=== PATIENT | male | born 1960 | race Caucasian/White ===

== ENCOUNTER 2019-04-05 09:01 | Outpatient (CLI) | payer OTHER, SELFPAY ==
--- NOTE | 2019-04-05 09:30 | USCV_ITS ---
DarwinMike Age: 59 Gender: M : 1960 Exam Date: 04/05/2019 09:20 Ordering Phys: Nereyda Noriega DO Technologist: Aleshia Silver Exam Location: [facility] [place] Indication: swelling HISTORY: Patient has swelling. PROCEDURES: Venous duplex imaging was performed in only the left lower extremity. The following venous structures were evaluated: common femoral vein, profunda vein, proximal portion of the greater saphenous vein, superficial femoral vein, and the popliteal vein. In addition, the posterior tibial and peroneal trunk were evaluated. Serial compression, augmentation maneuvers, and spectral Doppler flow evaluation were performed. Venous duplex imaging was performed in only the right lower extremity. FINDINGS: Normal 2-D Doppler and augmentation and compressibility throughout the lower extremity venous structures. Additional imaging through the proximal calf veins also reveals no thrombus. Limited evaluation of the greater saphenous vein is patent with no thrombus. CONCLUSIONS No DVT left lower extremity. Dr. Alexia Miles DO (Electronically Signed) Final Date: 05 April 2019 11:23 S
== END 2019-04-05 09:02 | disposition home or self-care (01) ==
LOC: RAD 09:06
PROVIDERS: Family Provider Internal Medicine; PCP Family Medicine; Visit Provider Family Medicine
DX: M79.89 Other specified soft tissue disorders (principal)
CPT/HCPCS: 93971

== ENCOUNTER → 2019-09-01 08:27 | Outpatient (BNVA) | payer SELFPAY | PROVIDERS: Family Provider Internal Medicine; PCP Family Medicine; Visit Provider Family Medicine | DX: I10 Essential (primary) hypertension (principal) | CPT/HCPCS: 80053; 80061; 82044; 85025 ==

== ENCOUNTER → 2020-03-01 08:41 | Outpatient (BNVA) | payer SELFPAY | PROVIDERS: Family Provider Internal Medicine; PCP Family Medicine; Visit Provider Family Medicine | DX: I10 Essential (primary) hypertension (principal); F17.229 Nicotine dependence, chewing tobacco, with unspecified nicotine-induced disorders | CPT/HCPCS: 80053 ==

== ENCOUNTER → 2020-08-27 08:08 | Outpatient (BNVA) | payer SELFPAY | PROVIDERS: Family Provider Internal Medicine; PCP Family Medicine; Visit Provider Family Medicine | DX: I10 Essential (primary) hypertension (principal); Z12.5 Encounter for screening for malignant neoplasm of prostate; F17.229 Nicotine dependence, chewing tobacco, with unspecified nicotine-induced disorders; F10.10 Alcohol abuse, uncomplicated; Z79.899 Other long term (current) drug therapy | CPT/HCPCS: 80053; 80061; 85025; G0103 ==

== ENCOUNTER → 2021-02-25 10:13 | Outpatient (BNVA) | payer SELFPAY | PROVIDERS: Family Provider Internal Medicine; PCP Family Medicine; Visit Provider Family Medicine | DX: I10 Essential (primary) hypertension (principal) | CPT/HCPCS: 80053 ==

== ENCOUNTER 2021-08-05 13:56 | Emergency (ER) | payer MEDICAID, SELFPAY ==
[2021-08-05] VITALS (10 sets, daily range): BP systolic 128–180; BP diastolic 100–122; PULSE 83–103; RESP 14–18; TEMP 36.6; O2SAT 92–98; BMI 24.1
--- NOTE | 2021-08-05 14:22 | CTR_ITS ---
PROCEDURE INFORMATION: Exam: CT Abdomen And Pelvis With Contrast Exam date and time: 08/05/2021 3:46 PM Age: 61 years old Clinical indication: Abdominal pain; Localized; Right lower quadrant (rlq); Prior surgery; Surgery type: Hernia; Additional info: Abd pain TECHNIQUE: Imaging protocol: Computed tomography of the abdomen and pelvis with contrast. Radiation optimization: All CT scans at this facility use at least one of these dose optimization techniques: automated exposure control; mA and/or kV adjustment per patient size (includes targeted exams where dose is matched to clinical indication); or iterative reconstruction. Contrast material: OMNI 300; Contrast volume: 95 ml; Contrast route: INTRAVENOUS (IV); COMPARISON: No relevant prior studies available. RADIATION DOSE METRICS: Total DLP (mGy-cm): 838.26 FINDINGS: Lungs: Calcified granuloma posterior right lung base. Liver: Liver is normal in size with steatosis. No obvious cirrhosis or suspicious mass. Gallbladder and bile ducts: Normal. No calcified stones. No ductal dilation. Pancreas: Normal. No ductal dilation. Spleen: Normal spleen size with calcified splenic granulomas. Adrenal glands: Normal. No mass. Kidneys and ureters: There is minimal right hydronephrosis, hydroureter and increased urothelial enhancement and minimal regional stranding. There is also slightly delayed right nephrogram. There is a tiny calculus in the posterior bladder lumen measuring about 1 mm. These findings suggest recent passage of right-sided calculus or calculi. No calculi are presently noted in the kidneys. No perinephric collection. Stomach and bowel: There is a large left medial diaphragmatic hernia containing the entire stomach and some fat. No evidence of other visceral herniation. No obvious wall thickening or abnormal dilatation in the partially visualized herniated stomach. Appendix: No evidence of appendicitis. Intraperitoneal space: Unremarkable. No free air. No significant fluid collection. Vasculature: No abdominal aortic aneurysm. Lymph nodes: No enlarged lymph nodes. Urinary bladder: See Kidneys and ureters finding. Reproductive: Unremarkable as visualized. Bones/joints: No acute fracture. Soft tissues: Tiny fat-containing right inguinal hernia. CT/CT abdomen pelvis w con* [id number] IMPRESSION: 1. Minimal right hydronephrosis/hydroureter and minimal regional stranding and delayed right nephrogram most likely related to recently passed right-sided calculus or calculi. At least 1 punctate calculus is noted in the dependent bladder lumen. 2. Large diaphragmatic/hiatal hernia as described above. No acute bowel findings otherwise. 3. Hepatic and other nonacute findings as above.
--- NOTE | 2021-08-05 14:30 | ED_ITS ---
HPI - General Adult General: Chief complaint: Abdominal Pain Stated complaint: ABD pain Time Seen by Provider: 08/05/21 14:22 History of Present Illness: Patient is a 61-year-old male with a history of prior left inguinal hernia repair repair presenting to the emergency room with sudden onset of right lower quadrant dull pain x4 hours. Patient tells me pain started quickly and immediately. Patient has had cramping colicky pain in that area. Patient reports multiple episode of emesis, denies any fever or chills diarrhea melena medic easier. Patient has no complaints at this time. Onset:4 hrs ago Duration:4 hrs Location:home Severity:moderate Associated symptoms: Reports nausea and vomiting; Deny chest pain, dyspnea, rash or palpitations Review of Systems Const: Denies: fever(s) or chills Eyes: Denies: change in vision ENMT: Denies: mouth pain Card: Denies: chest pain or palpitations Resp: Denies: dyspnea or non-productive cough GI: Reports: abdominal pain (+RLQ abd pain), nausea and vomiting; Denies: diarrhea : Denies: dysuria Musc: Denies: extremity pain Skin/Breast: Denies: rash or new lesions Neuro: Denies: weakness in extremities Psych: Reports: other (Normal mood) Jose Manuel/Lymph: Denies: easy bruising PFSH ED PFSH: Medical History (Updated 08/05/21 @ 18:06 by Ko Goldman MD) Benign essential hypertension Swelling of left lower extremity Surgical History (Updated 08/05/21 @ 14:31 by Ko Goldman MD) H/O hernia repair H/O inguinal hernia repair H/O vasectomy Family History Other CAD (coronary artery disease) Social History Smoking and tobacco status: current every day smoker smokeless tobacco Smokeless tobacco user: chewing tobacco Smokeless tobacco details: all day long Alcohol intake: current Alcohol intake frequency: 3 or more drinks per day Alcohol type: hard liquor Physical Exam Const: COMMON NORMALS: alert HENMT: COMMON NORMALS: atraumatic HEAD & SCALP: atraumatic MOUTH: moist mucous membranes not abnormal Eye: COMMON NORMALS: EOMs intact bilaterally and conjunctivae normal CONJUNCTIVA: Yes conjunctivae normal Neck/C-Spine: COMMON NORMALS: full ROM and supple Resp: COMMON NORMALS: normal respiratory effort and clear to auscultation bilaterally AUSCULTATION: clear to auscultation bilaterally Cardio: COMMON NORMALS: regular rate RATE: regular rate GI: COMMON NORMALS: Soft to palpation PALPATION: Yes Soft to palpation OTHER: +Moderate RLQ focal TTP. NO guarding rebound, guarding, rigidity. No CVA tenderness to percussion. Neg Joseph/Neg McBurney's point tenderness, no suprabupic tenderness to palpation. Extremity: COMMON NORMALS: full ROM Neuro: SENSORIUM/ORIENTATION: Yes alert MOTOR EXAM: No Abnormal motor strength present and Other motor observations present (no focal motor deficits) Psych: COMMON NORMALS: speech normal SPEECH: Yes normal speech MOOD & AFFECT: Yes euthymic mood Course Vital Signs: Vital signs: Vital Signs Temperature 97.8 F 08/05/21 14:17 Pulse Rate 86 08/05/21 18:00 Respiratory Rate 16 08/05/21 15:16 Blood Pressure 151/102 08/05/21 18:00 Pulse Oximetry 98 08/05/21 18:00 MDM - General Adult Medical Decision Making 61-year-old male with a history of hypertension, prior left-sided inguinal hernia repair presenting to the emergency with complaints of cute onset right lower quadrant pain x4 hours. On exam, patient is in moderate distress with moderate amount of tenderness palpation. No guarding no rebound tenderness. Patient received morphine and Zofran with improvement in nausea and pain. White count of 10.9. Creatinine of 1.0. UA showed blood. CT abdomen pelvis showed passed stone. Patient reports feeling significantly improved after pain medicine and IVF. Patient's not in distress currently. Suspect the past kidney stone. Initially lactic acid was 3.7 but it improved to 2.2 on repeat. Incidental findings of large hiatal hernia discussed extensively with patient. Patient received a copy of the CT report with the documented findings. Patient is instructed to follow up urgently with specialists. Rx tylenol PRN pain Disposition: Discharge. Patient counseled regarding diagnostic impression, treatment plan. Patient given ED strict return precautions to return for continuation, worsening, or development of new symptoms. Instructed to f/u w/ PCP regarding symptoms today. Patient verbalized understanding. Lab Data : 08/05/21 14:35 08/05/21 14:35 Radiology Impressions Abdomen/Pelvis CT 08/05/21 14:22 IMPRESSION: 1. Minimal right hydronephrosis/hydroureter and minimal regional stranding and delayed right nephrogram most likely related to recently passed right-sided calculus or calculi. At least 1 punctate calculus is noted in the dependent bladder lumen. 2. Large diaphragmatic/hiatal hernia as described above. No acute bowel findings otherwise. 3. Hepatic and other nonacute findings as above. Laboratory Results WBC 10.9 10^3/uL (4.0-10.0) H 08/05/21 14:35 RBC 4.38 10^6/uL (4.1-5.3) 08/05/21 14:35 Hgb 15.4 g/dL (11.7-16.6) 08/05/21 14:35 Hct 43.1 % (42.0-52.0) 08/05/21 14:35 MCV 98.4 fl (80-94) H 08/05/21 14:35 MCH 35.2 pg (28.0-34.0) H 08/05/21 14:35 MCHC 35.7 g/dL (30.0-36.0) 08/05/21 14:35 RDW 13.2 % (12.1-15.1) 08/05/21 14:35 Plt Count 197 10^3/cmm (130-400) 08/05/21 14:35 MPV 11.4 fL (7.4-10.4) H 08/05/21 14:35 Neut % (Auto) 88.2 % 08/05/21 14:35 Lymph % (Auto) 6.6 % 08/05/21 14:35 [place] % (Auto) 3.7 % 08/05/21 14:35 Eos % (Auto) 0.6 % 08/05/21 14:35 Baso % (Auto) 0.6 % 08/05/21 14:35 Neut # (Auto) 9.64 10^3/uL (1.8-7.7) H 08/05/21 14:35 Lymph # (Auto) 0.7 10^3/uL (0.8-4.8) L 08/05/21 14:35 [place] # (Auto) 0.4 10^3/uL (0.2-0.9) 08/05/21 14:35 Eos # (Auto) 0.1 10^3/uL (0.0-0.8) 08/05/21 14:35 Baso # (Auto) 0.1 10^3/uL (0.0-0.1) 08/05/21 14:35 Nucleated RBC % (auto) 0 % 08/05/21 14:35 Nucleated RBCs # 0.0 /100WBC 08/05/21 14:35 Sodium 141 mmol/L (136-145) 08/05/21 14:35 Potassium 4.1 mmol/L (3.5-5.1) 08/05/21 14:35 Chloride 103 mmol/L (98-107) 08/05/21 14:35 Carbon Dioxide 19 mmol/L (22-29) L 08/05/21 14:35 Anion Gap 23.1 (5-19) H 08/05/21 14:35 BUN 10 mg/dL (8-23) 08/05/21 14:35 Creatinine 1.0 mg/dL (0.7-1.2) 08/05/21 14:35 GFR Calculation 76.2 mL/min (90-130) L 08/05/21 14:35 Glucose 155 mg/dL (65-115) H 08/05/21 14:35 Calculated Osmolality 294 mOsm/kg (285-295) 08/05/21 14:35 Lactate 2.2 mmol/L (0.5-2.2) 08/05/21 17:50 Calcium 9.1 mg/dL (8.5-10.5) 08/05/21 14:35 Total Bilirubin 0.9 mg/dL (0.15-1.2) 08/05/21 14:35 AST 125 U/L (0-40) H 08/05/21 14:35 ALT 77 U/L (0-41) H 08/05/21 14:35 Alkaline Phosphatase 71 IU/L (40-130) 08/05/21 14:35 Total Protein 8.6 g/dL (6.6-8.7) 08/05/21 14:35 Albumin 4.8 g/dL (3.5-5.2) 08/05/21 14:35 Globulin 3.8 g/dL (1.3-4.6) 08/05/21 14:35 Lipase 35 U/L (13-60) 08/05/21 14:35 Urine Color Dark yellow (Yellow) 08/05/21 14:45 Urine Appearance Clear (CLEAR) 08/05/21 14:45 Urine pH 5 (5-7) 08/05/21 14:45 Ur Specific [place] 1.030 (1.005-1.030) 08/05/21 14:45 Urine Protein Trace (Negative) 08/05/21 14:45 Urine Glucose (UA) Norm (Normal) 08/05/21 14:45 Urine Ketones 1+ (Negative) H 08/05/21 14:45 Urine Blood 3+ (Negative) H 08/05/21 14:45 Urine Nitrate Negative (Negative) 08/05/21 14:45 Urine Bilirubin 1+ (Negative) H 08/05/21 14:45 Urine Urobilinogen Norm mg/dL (Negative) 08/05/21 14:45 Ur Leukocyte Esterase Negative (Negative) 08/05/21 14:45 Urine RBC 10-15 /hpf (0-2) H 08/05/21 14:45 Urine WBC 0-4 /hpf (0-5) H 08/05/21 14:45 Ur Squamous Epith Cells 0-4 /hpf (0-5) H 08/05/21 14:45 Amorphous Sediment Trace /hpf 08/05/21 14:45 Urine Bacteria Trace /hpf (NONE) 08/05/21 14:45 Hyaline Casts 0-4 /lpf H 08/05/21 14:45 Fine Granular Casts 0-4 /lpf H 08/05/21 14:45 Urine Mucus 2+ /hpf 08/05/21 14:45 Imaging Data Other Imaging: Radiologist's impression: [address] [address] [address] Scan Report Signed Patient: Mike Granados Unit #: [id number] : 1960 Age/Sex: 61 / M ADM Date: 08/05/21 Loc: ER Room/Bed: Attending Dr: Ordering Provider/Ordering MD: Ko Goldman MD Date of Service: 08/05/21 Procedure(s): CT abdomen pelvis w con* [id number] Accession Number(s): [id number] Report Number: [id number] PROCEDURE INFORMATION: Exam: CT Abdomen And Pelvis With Contrast Exam date and time: 08/05/2021 3:46 PM Age: 61 years old Clinical indication: Abdominal pain; Localized; Right lower quadrant (rlq); Prior surgery; Surgery type: Hernia; Additional info: Abd pain TECHNIQUE: Imaging protocol: Computed tomography of the abdomen and pelvis with contrast. Radiation optimization: All CT scans at this facility use at least one of these dose optimization techniques: automated exposure control; mA and/or kV adjustment per patient size (includes targeted exams where dose is matched to clinical indication); or iterative reconstruction. Contrast material: OMNI 300; Contrast volume: 95 ml; Contrast route: INTRAVENOUS (IV);? COMPARISON: No relevant prior studies available. RADIATION DOSE METRICS: Total DLP (mGy-cm): 838.26 FINDINGS: Lungs: Calcified granuloma posterior right lung base. Liver: Liver is normal in size with steatosis. No obvious cirrhosis or suspicious mass. Gallbladder and bile ducts: Normal. No calcified stones. No ductal dilation. Pancreas: Normal. No ductal dilation. Spleen: Normal spleen size with calcified splenic granulomas. Adrenal glands: Normal. No mass. Kidneys and ureters: There is minimal right hydronephrosis, hydroureter and increased urothelial enhancement and minimal regional stranding. There is also slightly delayed right nephrogram. There is a tiny calculus in the posterior bladder lumen measuring about 1 mm. These findings suggest recent passage of right-sided calculus or calculi. No calculi are presently noted in the kidneys. No perinephric collection. Stomach and bowel: There is a large left medial diaphragmatic hernia containing the entire stomach and some fat. No evidence of other visceral herniation. No obvious wall thickening or abnormal dilatation in the partially visualized herniated stomach. Appendix: No evidence of appendicitis. Intraperitoneal space: Unremarkable. No free air. No significant fluid collection. Vasculature: No abdominal aortic aneurysm.? Lymph nodes: No enlarged lymph nodes. Urinary bladder: See Kidneys and ureters finding. Reproductive: Unremarkable as visualized. Bones/joints: No acute fracture.? Soft tissues: Tiny fat-containing right inguinal hernia. CT/CT abdomen pelvis w con* [id number] IMPRESSION: 1. Minimal right hydronephrosis/hydroureter and minimal regional stranding and delayed right nephrogram most likely related to recently passed right-sided calculus or calculi. At least 1 punctate calculus is noted in the dependent bladder lumen. 2. Large diaphragmatic/hiatal hernia as described above. No acute bowel findings otherwise. 3. Hepatic and other nonacute findings as above. ? Dictated By: Real Ricardo MD Signed By: Real Ricardo MD Signed Date/Time: 08/05/21 1612 DD/ 1546 Discharge Plan Discharge Patient Disposition: Home Clinical Impression: Renal colic, Abdominal pain Condition: Stable Prescriptions: New acetaminophen 500 mg tablet 500 mg PO Q6H PRN (Reason: pain) 5 Days Qty: 20 0RF No Action lisinopril 10 mg tablet 10 mg PO QAM 0RF Discharge Orders: Discharge ED (Routine); Ordered 08/05/21 Ordered By: Ko Goldman Referrals: Nereyda Noriega DO [Primary Care Provider] - Discharge Diet: Advance as tolerated Discharge Activity: Increase activity as tolerated Patient Instructions: Abdominal Pain (ED) Activity Restrictions/Additional Instructions: Please come back if you have any worsening abdominal pain, fever or chills, nausea or vomiting, diarrhea, blood in the stool, inability hold down liquid or solids, or any new concerning complaints. Here's a copy of your CT report: [facility] [address] [address] Scan Report Signed Patient: Mike Granados Unit #: [id number] : 1960 Age/Sex: 61 / M ADM Date: 08/05/21 Loc: ER Room/Bed: Attending Dr: Ordering Provider/Ordering MD: Ko Goldman MD Date of Service: 08/05/21 Procedure(s): CT abdomen pelvis w con* [id number] Accession Number(s): [id number] Report Number: [id number] PROCEDURE INFORMATION: Exam: CT Abdomen And Pelvis With Contrast Exam date and time: 08/05/2021 3:46 PM Age: 61 years old Clinical indication: Abdominal pain; Localized; Right lower quadrant (rlq); Prior surgery; Surgery type: Hernia; Additional info: Abd pain TECHNIQUE: Imaging protocol: Computed tomography of the abdomen and pelvis with contrast. Radiation optimization: All CT scans at this facility use at least one of these dose optimization techniques: automated exposure control; mA and/or kV adjustment per patient size (includes targeted exams where dose is matched to clinical indication); or iterative reconstruction. Contrast material: OMNI 300; Contrast volume: 95 ml; Contrast route: INTRAVENOUS (IV);? COMPARISON: No relevant prior studies available. RADIATION DOSE METRICS: Total DLP (mGy-cm): 838.26 FINDINGS: Lungs: Calcified granuloma posterior right lung base. Liver: Liver is normal in size with steatosis. No obvious cirrhosis or suspicious mass. Gallbladder and bile ducts: Normal. No calcified stones. No ductal dilation. Pancreas: Normal. No ductal dilation. Spleen: Normal spleen size with calcified splenic granulomas. Adrenal glands: Normal. No mass. Kidneys and ureters: There is minimal right hydronephrosis, hydroureter and increased urothelial enhancement and minimal regional stranding. There is also slightly delayed right nephrogram. There is a tiny calculus in the posterior bladder lumen measuring about 1 mm. These findings suggest recent passage of right-sided calculus or calculi. No calculi are presently noted in the kidneys. No perinephric collection. Stomach and bowel: There is a large left medial diaphragmatic hernia containing the entire stomach and some fat. No evidence of other visceral herniation. No obvious wall thickening or abnormal dilatation in the partially visualized herniated stomach. Appendix: No evidence of appendicitis. Intraperitoneal space: Unremarkable. No free air. No significant fluid collection. Vasculature: No abdominal aortic aneurysm.? Lymph nodes: No enlarged lymph nodes. Urinary bladder: See Kidneys and ureters finding. Reproductive: Unremarkable as visualized. Bones/joints: No acute fracture.? Soft tissues: Tiny fat-containing right inguinal hernia. CT/CT abdomen pelvis w con* [id number] IMPRESSION: 1. Minimal right hydronephrosis/hydroureter and minimal regional stranding and delayed right nephrogram most likely related to recently passed right-sided calculus or calculi. At least 1 punctate calculus is noted in the dependent bladder lumen. 2. Large diaphragmatic/hiatal hernia as described above. No acute bowel findings otherwise. 3. Hepatic and other nonacute findings as above. ? Dictated By: Real Ricardo MD Signed By: Real Ricardo MD Signed Date/Time: 08/05/21 1612 DD/ 1546 Coding Level of Care Code ED Composition Stone Applicator for Chg Fwd Exam Comprehensive
[2021-08-05 14:45] LABS: Basophils # 0.1 10^3/uL (0.0-0.1); Basophils % 0.6 %; Eosinophils # 0.1 10^3/uL (0.0-0.8); Eosinophils % 0.6 %; Hematocrit 43.1 % (42.0-52.0); Hemoglobin 15.4 g/dL (11.7-16.6); Lymphocytes # 0.7 10^3/uL (0.8-4.8); Lymphocytes % 6.6 %; Mean Corpuscular HGB Conc 35.7 g/dL (30.0-36.0); Mean Corpuscular Hemoglobin 35.2 pg (28.0-34.0); Mean Corpuscular Volume 98.4 fl (80-94); Mean Platelet Volume 11.4 fL (7.4-10.4); Monocytes # 0.4 10^3/uL (0.2-0.9); Monocytes % 3.7 %; Neutrophils # 9.64 10^3/uL (1.8-7.7); Neutrophils % 88.2 %; Nucleated Red Blood Cells % 0 %; Platelet Count 197 10^3/cmm (130-400); Red Blood Count 4.38 10^6/uL (4.1-5.3); Red Cell Distribution Width 13.2 % (12.1-15.1); White Blood Count 10.9 10^3/uL (4.0-10.0)
[2021-08-05] MEDS: sodium chloride 0.9% 1,000 ML 999 ML IV ×3 (14:48→17:54)
[2021-08-05] MEDS: morphine 4 mg/mL SDV 1 mL IVP (14:48)
[2021-08-05] MEDS: ondansetron 2 mg/ML SDV 2 mL 4 MG IVP (14:48)
[2021-08-05 15:03] LABS: Lactate (Lactic Acid level) 3.7 mmol/L (0.5-2.2)
[2021-08-05 15:04] LABS: Alanine Aminotransferase 77 U/L (0-41); Albumin Level 4.8 g/dL (3.5-5.2); Alkaline Phosphatase 71 IU/L (40-130); Anion Gap 23.1 (5-19); Aspartate Amino Transferase 125 U/L (0-40); Blood Urea Nitrogen 10 mg/dL (8-23); Calcium 9.1 mg/dL (8.5-10.5); Carbon Dioxide 19 mmol/L (22-29); Chloride 103 mmol/L (98-107); Globulin 3.8 g/dL (1.3-4.6); Glomerular Filtration Rate 76.2 mL/min (90-130); Glucose 155 mg/dL (65-115); Lipase 35 U/L (13-60); Osmolality Calculated 294 mOsm/kg (285-295); Potassium 4.1 mmol/L (3.5-5.1); Sodium 141 mmol/L (136-145); Total Bilirubin 0.9 mg/dL (0.15-1.2); Total Protein 8.6 g/dL (6.6-8.7)
[2021-08-05] MEDS: HYDROmorphone 1 mg/mL INJ 1 mL 0.5 MG IVP (15:16)
[2021-08-05 15:28] LABS: Glucose Urine UA Norm (Normal); Protein Urine Trace (Negative); Urine Appearance Clear (CLEAR); Urine Color Dark Yellow (Yellow); pH Urine 5 (5-7)
[2021-08-05 15:29] LABS: Add Urine Microscopic? YES; Bacteria Urine TRACE /hpf; Bilirubin Urine 1+ (Negative); Blood Urine 3+ (Negative); Ketones Urine 1+ (Negative); Leukocyte Esterase Urine Negative (Negative); Mucus Urine 2+ /hpf; Nitrate Urine Negative (Negative); Squamous Epithelial Cell Urine 0-4 /hpf (0-5); Urobilinogen Urine Norm (Negative); WBC Urine 0-4 /hpf (0-5)
[2021-08-05 15:30] LABS: Add Urine Culture? Yes; Amorphous Sediment Urine TRACE /hpf; Fine Granular Casts Urine 0-4 /lpf; Hyaline Casts Urine 0-4 /lpf
[2021-08-05] MEDS: iohexol 300 mg/mL 100 mL Btl IV (15:44)
[2021-08-05] MEDS: piperacillin-tazobactam 4.5 GM in sodium chloride 0.9% (plus) 50 ML IV (15:58)
[2021-08-05 18:44] LABS: Lactate (Lactic Acid level) 2.2 mmol/L (0.5-2.2)
== END 2021-08-05 19:00 | disposition home or self-care (01) ==
PROVIDERS: Emergency Provider Emergency Medicine; PCP Family Medicine
DX: R10.84 Generalized abdominal pain (principal); K44.9 Diaphragmatic hernia without obstruction or gangrene; I10 Essential (primary) hypertension
CPT/HCPCS: 36415; 74177; 80053; 81001; 83605; 83690; 85025; 87086; 96361; 96365; 96375; 99284; J1170; J2270; J2405; J2543; J7030; Q9967

== ENCOUNTER → 2021-09-02 10:37 | Outpatient (BNVA) | payer MEDICAID, SELFPAY | PROVIDERS: PCP Family Medicine; Visit Provider Family Medicine | DX: I10 Essential (primary) hypertension (principal) | CPT/HCPCS: 80061 ==

== ENCOUNTER → 2021-10-06 08:14 | Outpatient (BNVA) | payer MEDICAID, SELFPAY | PROVIDERS: PCP Family Medicine; Visit Provider Surgery | DX: K44.9 Diaphragmatic hernia without obstruction or gangrene (principal) | CPT/HCPCS: 99203 ==

== ENCOUNTER 2021-10-30 09:34 | Outpatient (CLI) | payer MEDICAID, SELFPAY ==
--- NOTE | 2021-10-30 09:45 | FL_ITS ---
WS: [id number] Barium swallow and esophagram, upper GI series with air, 10/30/2021 Clinical Data: HIATAL HERNIA Comparison: CT abdomen pelvis, 08/05/2021. Fluoroscopy time: 1min [id number] # of spot films: 11 Findings: The patient swallowed the thick and thin barium, and it flowed through the hypopharynx without hesita tion. No stricture, mass, polyp or erosion was seen. The barium passed into the esophagus and there was normal motility throughout. The stomach is entirel y contained within the left side of the lower thoracic space. No hiatal hernia, reflux, polyps, mass, erosion or ulcer could be seen. The stomach showed no polyps, masses or ulcers. Barium then passed i nto the duodenal bulb which distended normally without ulceration. The duodenal bulb was in an unusua l location and pointed inferiorly through the left diaphragm. The descending duodenum was elevated an d displaced to the medial side of the left side of the abdomen. The proximal small bowel is normal. FL/FL upper GI w air* [id number] Impression: 1. The stomach is entirely contained within the inferior part of the lower left pleural space. 2. No erosion, ulceration, polyp or mass of the esophagus, stomach or duodenum is seen.
== END 2021-10-30 09:35 | disposition home or self-care (01) ==
LOC: RAD 09:36
PROVIDERS: PCP Family Medicine; Visit Provider Surgery
DX: K44.9 Diaphragmatic hernia without obstruction or gangrene (principal)
CPT/HCPCS: 74246

== ENCOUNTER → 2021-11-19 10:46 | Outpatient (BNVA) | payer MEDICAID, SELFPAY | PROVIDERS: PCP Family Medicine; Visit Provider Surgery | DX: Z09 Encounter for follow-up examination after completed treatment for conditions other than malignant neoplasm (principal); K44.9 Diaphragmatic hernia without obstruction or gangrene | CPT/HCPCS: 99213 ==

== ENCOUNTER → 2022-01-05 14:43 | Outpatient (BNVA) | payer MEDICAID, SELFPAY | PROVIDERS: PCP Family Medicine; Visit Provider Family Medicine | DX: I10 Essential (primary) hypertension (principal); Z13.6 Encounter for screening for cardiovascular disorders | CPT/HCPCS: 80053 ==

== ENCOUNTER → 2022-07-03 10:55 | Outpatient (BNVA) | payer SELFPAY | PROVIDERS: PCP Family Medicine; Visit Provider Family Medicine | DX: I10 Essential (primary) hypertension (principal); R53.83 Other fatigue; Z12.5 Encounter for screening for malignant neoplasm of prostate | CPT/HCPCS: 80053; 80061; 82043; 84403; 84443; 85025; G0103 ==

== ENCOUNTER → 2022-07-06 10:55 | Outpatient (BNVA) | payer SELFPAY | PROVIDERS: PCP Family Medicine; Visit Provider Family Medicine | DX: R79.89 Other specified abnormal findings of blood chemistry (principal); R53.83 Other fatigue | CPT/HCPCS: 84439 ==

== ENCOUNTER → 2022-09-15 12:04 | Outpatient (BNVA) | payer SELFPAY | PROVIDERS: PCP Family Medicine; Visit Provider Family Medicine | DX: M10.9 Gout, unspecified (principal); I10 Essential (primary) hypertension | CPT/HCPCS: 80048; 84439; 84443; 84550 ==

== ENCOUNTER → 2022-10-28 10:09 | Outpatient (BNVA) | payer SELFPAY | PROVIDERS: PCP Family Medicine; Visit Provider Family Medicine | DX: E03.9 Hypothyroidism, unspecified (principal) | CPT/HCPCS: 84439; 84443 ==

== ENCOUNTER → 2022-12-31 09:16 | Outpatient (BNVA) | payer SELFPAY | PROVIDERS: PCP Family Medicine; Visit Provider Family Medicine | DX: E03.9 Hypothyroidism, unspecified (principal); M10.9 Gout, unspecified; I10 Essential (primary) hypertension | CPT/HCPCS: 84439; 84443 ==

== ENCOUNTER → 2023-01-26 10:20 | Outpatient (BNVA) | payer SELFPAY | PROVIDERS: PCP Family Medicine; Visit Provider Family Medicine | DX: M10.9 Gout, unspecified (principal); I10 Essential (primary) hypertension | CPT/HCPCS: 80053; 84550 ==

== ENCOUNTER → 2023-08-02 11:24 | Outpatient (BNVA) | payer SELFPAY | PROVIDERS: PCP Family Medicine; Visit Provider Family Medicine | DX: I10 Essential (primary) hypertension (principal); E03.9 Hypothyroidism, unspecified | CPT/HCPCS: 80053; 80061; 82043; 84443; 85025 ==

== ENCOUNTER → 2024-06-01 10:27 | Outpatient (BNVA) | payer SELFPAY | PROVIDERS: PCP Family Medicine; Visit Provider Family Medicine | DX: I10 Essential (primary) hypertension (principal); E03.9 Hypothyroidism, unspecified; M10.9 Gout, unspecified; D53.9 Nutritional anemia, unspecified | CPT/HCPCS: 80053; 80061; 82607; 82746; 84439; 84443; 84550; 85025 ==

== ENCOUNTER → 2024-06-02 | Outpatient (BNVA) | payer SELFPAY | PROVIDERS: PCP Family Medicine; Visit Provider Family Medicine | DX: R73.9 Hyperglycemia, unspecified (principal) | CPT/HCPCS: 83036 ==

== ENCOUNTER → 2024-07-20 10:24 | Outpatient (BNVA) | payer SELFPAY | PROVIDERS: PCP Family Medicine; Visit Provider Family Medicine | DX: E03.9 Hypothyroidism, unspecified (principal) | CPT/HCPCS: 84439; 84443 ==

== ENCOUNTER → 2024-11-27 11:46 | Outpatient (BNVA) | payer SELFPAY | PROVIDERS: PCP Family Medicine; Visit Provider Family Medicine | DX: E03.9 Hypothyroidism, unspecified (principal) | CPT/HCPCS: 84439; 84443 ==